=== PATIENT | male | born 1940 | race Caucasian/White ===

== ENCOUNTER → 2016-09-23 | Outpatient (CLI) | payer OTHER ==
[~2016-09-23] MED LIST: CYAN500T PO; IBUP-103 PO; MAGN1CAP4 PO; MISCTAB30 PO; PRED20TA PO
[2016-09-23 14:28] VITALS: BP 137/80; PULSE 72; TEMP 36.5; O2SAT 98
--- NOTE | 2016-09-23 16:12 | Radiation Oncology Follow-Up ---
Radiation Oncology Follow-Up Date of Visit Sep 23, 2016. (Gisela Bernal PA-C) Reason For Visit One-month follow-up (Gisela Bernal PA-C) Radiation Completion Date 09/03/16 (Gisela Bernal PA-C) Diagnosis (1) Malignant melanoma Status: Acute Onset Date: 08/06/2014 Stage: IV Permanent Comment: Malignant melanoma excised from the right neck 08/06/2014 Status post wide local excision 09/11/2014 Stage [id number] Development of right neck mass and finding of lung metastasis FNA of neck mass 01/06/2016 revealing malignant melanoma Initiation of systemic chemotherapy, Opdivo, now held due to edema Status post completion of radiation therapy 09/03/2016. He received 5000 cGy Last Edited By: Gisela Bernal on Sep 14, 2016 16:36 (Gisela Bernal PA-C) History of Present Illness Mr. Pal is a 76-year-old gentleman initially diagnosed with melanoma in August 2014 demonstrated with excision and observation. The patient more recently presented with progression of disease involving the lungs and right neck. Until recently, the patient refused any systemic therapy underneath the supervision of Dr. Sebastien Varghese. More recently, he did agree to initiate therapy and did receive Opdivo underneath the supervision of Dr. Sebastien Varghese. He has stopped the Opdivo due to significant edema in the upper extremities. Clinically, the patient has developed a enlarging right neck mass which has grown rapidly and we have been asked to evaluate him for consideration of palliative external beam radiation therapy; the patient was seen by Dr. Wood who advised against a surgical resection and recommended palliative radiation therapy as well. Overall, the patient is doing relatively okay. He has noticed an enlarging neck mass in the right neck which does cause any pain or discomfort. He completed radiation therapy 09/03/2016. He received 5000 cGy. (Gisela Brenal PA-C) Interim History Over the past month he has had improvement in the skin irritation that occurred at the end of treatment. He has some continued dryness for which she is using Aquaphor. There are no areas that are open or draining. He does feel that the mass did have a response but now has a new raised area at the very top. He denies any pain of his ear. He had no sore throat. There is alopecia of his mabry. He has had a recheck PET/CT that was performed on 09/16/2016. Unfortunately this has shown development of multiple metabolically active metastatic lesions in the liver. Interval increase in size and metabolic activity of pulmonary nodules/masses, and/or anterior mediastinal/prevascular lymphadenopathy. Demonstration of metabolically active right cervical mass just posterior to the parotid gland. Collectively, findings are consistent with progression of disease. He has seen Dr. Varghese in follow-up and she is recommending treatment with Keytruda. He is very concerned about potential side effects. He had been given one treatment Opdivo and had a severe reaction with edema. He has been on steroid therapy since. This is being adjusted by his primary care physician. He is currently down to one and half tablets per day. (Gisela Bernal PA-C) Allergies Coded Allergies: No Known Allergies (Unverified , 07/27/16) Home Medications Scheduled Cyanocobalamin (Vitamin B-12), 500 MCG PO DAILY Misc Natural Products (Osteo Bi-Flex Joint Shiel), 1 TAB PO DAILY Prednisone (Prednisone), 1 TAB PO BID Review of Systems Gastrointestinal: Symptoms: WNL Oral: Symptoms: No Problems Respiratory: Symptoms: WNL Urinary: Symptoms: WNL Skin: Symptoms: Dry Desquamation, No Problems Other Skin Symptoms: Dry / Patchy / Red at treatment site (Gisela Bernal PA-C) Physical Exam Vital Signs Date Time Temp Pulse Resp B/P (MAP) Pulse Ox O2 Delivery O2 Flow Rate FiO2 09/23/16 14:28 36.5 72 16 137/80 98 Fatigue: None Eyes: normal inspection, EOMI ENT: hearing grossly normal, + pertinent finding (there is a mass of the right neck which now measures approximately 3 cm in diameter. It is much softer compared to prior to treatment. It is also mobile. There is a new nodule on top of the mass. This is approximately 1 cm.) Neck: supple, thyroid normal, + pertinent finding (there is dry desquamation. There is no wet desquamation and there are no signs of infection.) Respiratory/Chest: lungs clear, no respiratory distress, no accessory muscle use Cardiovascular: regular rate, rhythm, no gallop, no murmur Neurologic/Psychiatric: no motor/sensory deficits, alert, normal mood/affect Skin: warm/dry (Gisela Bernal PA-C) Assessment & Plan Plan: He was seen and examined by Dr. Trujillo. He has an appointment to see Dr. Varghese on Wednesday to discuss treatment. I reviewed with him that the neck mass can be followed throughout treatment to determine if he is having a response to therapy. He'll continue to discuss the dose of steroids with his primary care physician. He is going to see Dr. Mendosa for an evaluation by rheumatology on 10/01/2016. We asked him to return to our office as needed or recommended by Dr. Varghese. (Gisela Bernal PA-C) I agree with note created by Gisela Bernal PA-C. I reviewed the patient's chart and information with her. I have examined and evaluated the patient. I reviewed relevant clinical information and answered the patient's and/or family' s questions. (Veeral. Trujillo MD) Total Time In Follow-Up We spent 25 minutes speaking to the patient and performing examination. I spent 15 minutes reviewing information in completing this note. (Gisela Bernal PA-C) I spent 15 minutes examining and counseling the patient. (Veeral. Trujillo MD) Copy To Sebastien Varghese MD; Josse Lynch D.O.; José Lorenzo M.D.; Robert Poole M.D. Problem Qualifiers (1) Malignant melanoma: Melanoma location: neck Qualified Codes: C43.4 - Malignant melanoma of scalp and neck
== END | disposition home or self-care (01) ==
LOC: C.ONC 14:22
PROVIDERS: ATTEND Physician Assistant Medical
DX: Z08 Encounter for follow-up examination after completed treatment for malignant neoplasm (principal); Z92.3 Personal history of irradiation; Z85.820 Personal history of malignant melanoma of skin

== ENCOUNTER 2017-01-11 19:15 | Emergency (ER) | payer OTHER ==
[~2017-01-11 19:15] MED LIST changes: -IBUP-103 PO; -MAGN1CAP4 PO
[2017-01-11] MEDS ORDERED: SODIUM CHLORIDE 0.9% 1000ML 1,000 ML IV STA (19:31)
[2017-01-11 19:40] VITALS: O2SAT 97
[2017-01-11 19:59] LABS: BASO % 0.1 %; BASO ABS # 0.01 K/uL (0-0.2); COMPLETE YES; EOS % 0.1 %; HEMATOCRIT 39.4 % (42-52); IG% 0.2 %; LYMPH % 10.7 %; LYMPH ABS # 1.19 K/uL (1.2-3.4); MEAN CELL VOLUME 93.8 fL (80-100); MEAN CORPUSCULAR HEMOGLOBIN 31.7 pg (25-34); MEAN CORPUSCULAR HGB CONC 33.8 g/dl (32-36); MEAN PLATELET VOLUME 9.5 fL (7.4-10.4); MONO % 5.8 %; NEUT % 83.1 %; PLATELET COUNT 230 K/uL (130-400); WHITE BLOOD COUNT 11.14 K/uL (4.8-10.8)
--- NOTE | 2017-01-11 20:07 | EMERGENCY ROOM VISIT NOTE ---
History Report prepared by Leonie: Layo Aguilar Under the Supervision of: Dr. Joe Vaughan M.D. First contact with patient: 19:24 Chief Complaint: STROKE SYMPTOMS Stated Complaint: STROKE History of Present Illness The patient is a 77 year old male who presents to the Emergency Room with complaints of worsening weakness that started January 01. The patient is accompanied by his who states he has been off balance and has been worsening. He reports that he has been drooling frequently and experiencing dysphasia. The patient states he has not had an appetite and has not been eating lately. His reports that he had some cereal and half of sandwich today. She states that his hands and legs have been "drooping". The patient states that he has a history of melanoma that was diagnosed 2 years ago. He reports that he had surgery on his right neck with Dr. Islas of [facility]. His states that he has had radiation and one unit of chemotherapy, but stopped chemotherapy due to how ill he became. The patient's reports that she is unsure if he is experiencing this because of fluid build up in his lungs. The patient reports that his PCP is Dr. Poole. He admits that he has a history of heartburn. The patient denies any blood thinners. Source of History: patient, spouse/significant other Onset: January 01 Position: other (global) Quality: other ("off balance") Timing: worsening Note: Associated Symptoms include: dysphasia and drooling Review of Systems All systems have been listed, reviewed, and are negative other than those previously mentioned. Please see Additional Medical History Sheet. Past Medical & Surgical Medical Problems: (1) Melanoma (2) Psoriasis Family History Cancer Lung disease Social History Smoking Status: Former Smoker Alcohol Use: occasionally Drug Use: none Marital Status: Housing Status: lives with significant other Occupation Status: retired Current/Historical Medications Scheduled Cyanocobalamin (Vitamin B-12), 500 MCG PO DAILY Magnesium Oxide (Magnesium), 500 MG PO DAILY Misc Natural Products (Osteo Bi-Flex Joint Shiel), 1 TAB PO DAILY Prednisone (Prednisone), 20 MG PO QAM Allergies Coded Allergies: No Known Allergies (Unverified , 01/11/17) Physical Exam Vital Signs Date Time Temp Pulse Resp B/P (MAP) Pulse Ox O2 Delivery O2 Flow Rate FiO2 01/11/17 22:30 78 16 139/98 98 Room Air 01/11/17 21:30 72 16 139/87 97 Room Air 01/11/17 20:10 80 18 146/88 97 Room Air 01/11/17 19:43 82 01/11/17 19:40 97 Room Air 01/11/17 19:25 89 18 144/85 94 Room Air Physical Exam GENERAL: Patient awake, alert, oriented x 3. Patient follows commands. Patient does not appear toxic. Patient is adequately hydrated and well- nourished. SKIN: No erythema, pallor, cyanosis or rash HEENT: Normal head, pupils equal, reactive to light and accommodation. Ears normal. Oral cavity and posterior pharynx appear normal. No obvious masses or deformities. Can move tongue to each side. Garbled speech. Neck: Without adenopathy, no neck vein distention. Nodule with scar and scarring from radiation on right side of neck right below ear. LUNGS: Clear to auscultation. No wheezes, no rales, no rhonchi. HEART: No murmurs. No gallops. No rubs ABDOMEN: No masses, no rebound, no hepatomegaly or splenomegaly. EXTREMITIES: No signs of trauma. No pedal or pretibial edema. No calf or thigh tenderness. NEUROLOGIC: Cranial nerves II-XII within normal limits. No gross motor sensory function deficits. Medical Decision & Procedures ER Provider Diagnostic Interpretation: X ray results are stated below per my interpretation and the radiologist's interpretation. CHEST 2 VIEWS ROUTINE HISTORY: melanoma in neck with mets COMPARISON: Outside hospital PET/CT 09/16/2016. FINDINGS: The heart is normal in size. No pleural effusions. No pneumothorax. Multiple bilateral pulmonary nodules consistent with metastatic disease. Dominant nodule within the right upper lobe measures 4.6 cm. These have increased in size compared to prior CT examination. No new focal lung consolidations to suggest pneumonia. No evidence for pulmonary edema. IMPRESSION: Increase in size in the multiple bilateral pulmonary nodules consistent with metastatic disease. Electronically signed by: Jc Cruz M.D. 01/11/2017 10:33 PM Dictated Date/Time: 01/11/2017 10:31 PM Laboratory Results 01/11/17 19:50 Red Blood Count 4.20, Mean Corpuscular Volume 93.8, Mean Corpuscular Hemoglobin 31.7, Mean Corpuscular Hemoglobin Concent 33.8, Mean Platelet Volume 9.5, Neutrophils (%) (Auto) 83.1, Lymphocytes (%) (Auto) 10.7, Monocytes (%) (Auto) 5.8, Eosinophils (%) (Auto) 0.1, Basophils (%) (Auto) 0.1, Neutrophils # (Auto) 9.26, Lymphocytes # (Auto) 1.19, Monocytes # (Auto) 0.65, Eosinophils # (Auto) 0.01, Basophils # (Auto) 0.01 01/11/17 19:50 Test 01/11/17 19:50 01/11/17 20:15 White Blood Count 11.14 K/uL (4.8-10.8) Red Blood Count 4.20 M/uL (4.7-6.1) Hemoglobin 13.3 g/dL (14.0-18.0) Hematocrit 39.4 % (42-52) Mean Corpuscular Volume 93.8 fL (80-100) Mean Corpuscular Hemoglobin 31.7 pg (25-34) Mean Corpuscular Hemoglobin Concent 33.8 g/dl (32-36) Platelet Count 230 K/uL (130-400) Mean Platelet Volume 9.5 fL (7.4-10.4) Neutrophils (%) (Auto) 83.1 % Lymphocytes (%) (Auto) 10.7 % Monocytes (%) (Auto) 5.8 % Eosinophils (%) (Auto) 0.1 % Basophils (%) (Auto) 0.1 % Neutrophils # (Auto) 9.26 K/uL (1.4-6.5) Lymphocytes # (Auto) 1.19 K/uL (1.2-3.4) Monocytes # (Auto) 0.65 K/uL (0.11-0.59) Eosinophils # (Auto) 0.01 K/uL (0-0.5) Basophils # (Auto) 0.01 K/uL (0-0.2) RDW Standard Deviation 45.3 fL (36.4-46.3) RDW Coefficient of Variation 13.2 % (11.5-14.5) Immature Granulocyte % (Auto) 0.2 % Immature Granulocyte # (Auto) 0.02 K/uL (0.00-0.02) Anion Gap 7.0 mmol/L (3-11) Estimated GFR () 85.0 Estimated GFR (Non- 73.3 BUN/Creatinine Ratio 16.6 (10-20) Calcium Level 9.7 mg/dl (8.5-10.1) Total Bilirubin 0.4 mg/dl (0.2-1) Aspartate Amino Transf (AST/SGOT) 15 U/L (15-37) Alanine Aminotransferase (ALT/SGPT) 20 U/L (12-78) Alkaline Phosphatase 83 U/L (45-117) Troponin I < 0.015 ng/ml (0-0.045) Total Protein 7.7 gm/dl (6.4-8.2) Albumin 3.7 gm/dl (3.4-5.0) Globulin 4.0 gm/dl (2.5-4.0) Albumin/Globulin Ratio 0.9 (0.9-2) Urine Color YELLOW Urine Appearance CLEAR (CLEAR) Urine pH 7.5 (4.5-7.5) Urine Specific Pisek 1.018 (1.000-1.030) Urine Protein NEG (NEG) Urine Glucose (UA) NEG (NEG) Urine Ketones NEG (NEG) Urine Occult Blood NEG (NEG) Urine Nitrite NEG (NEG) Urine Bilirubin NEG (NEG) Urine Urobilinogen NEG (NEG) Urine Leukocyte Esterase NEG (NEG) Laboratory results as stated above per my review. Medications Administered Medications (Trade) Dose Ordered Sig/Fernando Route Start Time Stop Time Status Last Admin Dose Admin Sodium Chloride 1,000 ml @ 300 mls/hr Q3H20M STAT IV 01/11/17 19:31 01/11/17 22:50 DC 01/11/17 20:10 300 MLS/HR Prednisone (PredniSONE TAB) 60 mg NOW STAT PO 01/11/17 22:02 01/11/17 22:04 DC 01/11/17 22:31 60 MG ECG Indication: weakness Rate (beats per minute): 78 Rhythm: normal sinus Findings: RBBB, other (LVH) Comparison ECG Date: no prior available ED Course 1925: Past medical records reviewed. The patient was evaluated in room A11B. A complete history and physical examination was performed. 1930: Ordered Sodium Chloride 1000 ml @ 300 mls/hr IV. 2201: Ordered Prednisone 60 mg PO. 2311: Upon reevaluation, the patient appeared to have improvement of his symptoms. I discussed today's findings with him. The patient verbalized agreement of the treatment plan. He was discharged home. Medical Decision Nurses notes reviewed. Medical history sheet reviewed. Differential diagnosis includes but is not limited to: melanoma with metastasis, CVA, TIA. Multiple labs, EKG and imaging were obtained. Please see above. The patient does not have symptoms to suggest a CVA or TIA. I believe his dysarthria is related to his tumor and subsequent radiation. On exam he does not have any airway compromise. Pulse oximetry is high. White count is not elevated. Patient was started on a higher dose of prednisone today and will double his prednisone dose daily for the next 5 days. I am hopeful that he can follow-up with oncology this week. Case management was asked to help get patient in. Medication Reconcilliation Current Medication List: was personally reviewed by me Blood Pressure Screening Patient's blood pressure: Elevated blood pressure Blood pressure disposition: Referred to PCP Impression Primary Impression: Malignant melanoma Additional Impression: Dysarthria Scribe Attestation The scribe's documentation has been prepared under my direction and personally reviewed by me in its entirety. I confirm that the note above accurately reflects all work, treatment, procedures, and medical decision making performed by me. Departure Information Dispostion Home / Self-Care Referrals Robert Poole M.D. (PCP) Patient Instructions My [facility] [employer] Additional Instructions Double your normal dose of prednisone for the next 5 days. Continue all of your other medications as prescribed. Follow-up with your oncologist this week. Problem Qualifiers
[2017-01-11 20:23] LABS: ALT/SGPT 20 U/L (12-78); BLOOD UREA NITROGEN 17 mg/dl (7-18); BUN/CREATININE RATIO 16.6 (10-20); CALCIUM 9.7 mg/dl (8.5-10.1); CARBON DIOXIDE 25 mmol/L (21-32); CHLORIDE 111 mmol/L (98-107); GLUCOSE 100 mg/dl (70-99); POTASSIUM 4.2 mmol/L (3.5-5.1); SODIUM 143 mmol/L (136-145)
[2017-01-11] MEDS ORDERED: MAGN1CAP4 PO (20:24)
[2017-01-11] MEDS ORDERED: PRED20TA PO (20:24)
[2017-01-11 20:28] LABS: ALB/GLOB RATIO 0.9 (0.9-2); ALKALINE PHOSPHATASE 83 U/L (45-117); AST/SGOT 15 U/L (15-37)
[2017-01-11 20:32] LABS: URINE APPEARANCE CLEAR (CLEAR); URINE BILIRUBIN NEG (NEG); URINE COLOR YELLOW; URINE NITRITE NEG (NEG); URINE PH 7.5 (4.5-7.5); URINE SPECIFIC GRAVITY 1.018 (1.000-1.030); UROBILINOGEN NEG (NEG); ZZUR CULT IF INDIC CLEAN CATCH NO
[2017-01-11 20:35] LABS: MANUAL MICROSCOPIC REQUIRED? NO; REVIEW REQ? NO
--- NOTE | 2017-01-11 22:34 | DIAGNOSTIC IMAGING REPORT ---
CHEST 2 VIEWS ROUTINE HISTORY: melanoma in neck with mets COMPARISON: Outside hospital PET/CT 09/16/2016. FINDINGS: The heart is normal in size. No pleural effusions. No pneumothorax. Multiple bilateral pulmonary nodules consistent with metastatic disease. Dominant nodule within the right upper lobe measures 4.6 cm. These have increased in size compared to prior CT examination. No new focal lung consolidations to suggest pneumonia. No evidence for pulmonary edema. IMPRESSION: Increase in size in the multiple bilateral pulmonary nodules consistent with metastatic disease. Electronically signed by: Jc Cruz M.D. 01/11/2017 10:33 PM Dictated Date/Time: 01/11/2017 10:31 PM
[2017-01-11 23:52] VITALS: BP 142/99; PULSE 77; O2SAT 98
--- NOTE | 2017-01-12 14:13 | Pharmacy Progress Note ---
ED Pharmacist Progress Note Date of Service: Jan 12, 2017. Patient's called regarding prednisone prescription from ER visit 01/11. After confirming with the patient himself that I was able to disclose this information to his , I informed her that it did not appear that a prescription was actually entered. I did however confirm the discharge instruction written by Dr. Vaughan to double the patients daily prednisone dose for the next 5 days until follow up appointment . The patient said that they had enough prednisone pills to be able to accomplish this and said they did not receive any discharge paperwork. I then coordinated with medical records on her behalf to have the discharge instruction emailed to the patient and his at the address provided to me of [email or web address].
== END 2017-01-11 23:31 | disposition home or self-care (01) ==
LOC: C.EDB 19:16 → C.EDA 23:31
DX: C43.9 Malignant melanoma of skin, unspecified (principal); R47.1 Dysarthria and anarthria; R47.02 Dysphasia; Z87.891 Personal history of nicotine dependence; Z92.3 Personal history of irradiation

== ENCOUNTER 2017-01-14 12:36 | Emergency (ER) | payer OTHER ==
[~2017-01-14] VITALS: Ht 167.6 cm; Wt 83.6 kg
[~2017-01-14 12:36] MED LIST changes: +MAGN1CAP4 PO
[2017-01-14] MEDS ORDERED: SODIUM CHLORIDE 0.9% 1000ML 1,000 ML IV STA (12:47)
[2017-01-14 13:21] LABS: COMPLETE YES; EOS % 0.2 %; HEMATOCRIT 38.9 % (42-52); IG% 0.2 %; LYMPH % 6.5 %; LYMPH ABS # 0.71 K/uL (1.2-3.4); MEAN CELL VOLUME 93.7 fL (80-100); MEAN CORPUSCULAR HGB CONC 34.2 g/dl (32-36); MEAN PLATELET VOLUME 9.7 fL (7.4-10.4); MONO % 3.5 %; NEUT % 89.6 %; PLATELET COUNT 225 K/uL (130-400); RED BLOOD COUNT 4.15 M/uL (4.7-6.1); WHITE BLOOD COUNT 10.88 K/uL (4.8-10.8)
[2017-01-14 13:29] LABS: PROTHROMBIN TIME (PATIENT) 10.4 SECONDS (9.0-12.0)
--- NOTE | 2017-01-14 13:31 | DIAGNOSTIC IMAGING REPORT ---
CT HEAD WITHOUT CONTRAST (CT) CLINICAL HISTORY: EVALUATE WEAKNESS SLURRED SPEECH COMPARISON STUDY: Outside MRI the brain dated 06/18/2016 TECHNIQUE: Axial CT of the brain is performed from the vertex to the skull base. IV contrast was not administered for this examination. A dose lowering technique was utilized adhering to the principles of ALARA. CT DOSE: 614.27 mGy.cm FINDINGS: There is a 3.5 cm hemorrhagic lesion with thin the right posterior frontal lobe with surrounding vasogenic edema. There is a 12 mm mildly hyperdense mass within the left frontal lobe. This 12 mm mildly hyperdense mass in the left frontal lobe. There is 8 mm mildly hyperdense mass in the left parietal lobe. This 21 mm hyperdense mass within the right frontoparietal vertex with surrounding vasogenic edema. There is 11 mm hyperdense lesion within the left frontal lobe. There is a 16 mm lesion within the right medial temporal lobe. There is an area of edema within the left occipital lobe. There is an 8 mm hyperdense lesion within the left parietal vertex. There is a 1 cm left posterior parietal vertex scalp lesion. There is no evidence of pathologic ventricular dilatation. There is mild mass effect on the right lateral ventricle. There is no evidence of acute sinusitis IMPRESSION: 1. Multiple bilateral parenchymal masses, viewed as highly suspicious for metastatic disease 2. 35mm acute hemorrhage within the right posterior frontal lobe with surrounding vasogenic edema. This likely represents hemorrhage into a mass 3. Although nonspecific, the hyperdense nature of the lesions, raises the possibility of metastatic melanoma. 4. 10 mm left posterior parietal scalp lesion Electronically signed by: Frantz Oropeza M.D. 01/14/2017 1:30 PM Dictated Date/Time: 01/14/2017 1:23 PM
--- NOTE | 2017-01-14 13:35 | DIAGNOSTIC IMAGING REPORT ---
SINGLE VIEW CHEST CLINICAL HISTORY: Generalized weakness. FINDINGS: An AP, portable, upright chest radiograph is compared to study dated 01/11/2017 and correlated with PET/CT dated 09/16/2016. The examination is degraded by portable technique and patient rotation. The cardiomediastinal silhouette is unremarkable. Large pulmonary nodules are again seen and consistent with multifocal pulmonary metastatic disease. This is similar to previous. No airspace consolidation is identified typical for pneumonia and there is no large pleural effusion. Atelectasis is seen at the left lung base. No pneumothorax is seen. The skeletal structures are osteopenic. The bony thorax is grossly intact. IMPRESSION: 1. There is no acute cardiopulmonary abnormality. 2. Multifocal pulmonary metastatic disease is similar to previous. Electronically signed by: Omar Nassar M.D. 01/14/2017 1:34 PM Dictated Date/Time: 01/14/2017 1:32 PM
[2017-01-14 13:49] LABS: BLOOD UREA NITROGEN 20 mg/dl (7-18); CREATININE 0.97 mg/dl (0.60-1.40); GLUCOSE 98 mg/dl (70-99)
[2017-01-14 13:50] LABS: ALT/SGPT 24 U/L (12-78); AST/SGOT 29 U/L (15-37); BUN/CREATININE RATIO 20.9 (10-20); CARBON DIOXIDE 25 mmol/L (21-32); CHLORIDE 109 mmol/L (98-107); MAGNESIUM 2.3 mg/dl (1.8-2.4); SODIUM 143 mmol/L (136-145)
[2017-01-14 13:58] LABS: ALKALINE PHOSPHATASE 80 U/L (45-117)
[2017-01-14] MEDS ORDERED: DEXAMETHASONE SOD INJ 10 MG/ML VIAL IV ONE (14:00)
[2017-01-14 14:05] VITALS: O2SAT 92
[2017-01-14 14:14] LABS: URINE APPEARANCE TURBID (CLEAR); URINE BILIRUBIN NEG (NEG); URINE COLOR YELLOW; URINE EPITHELIAL CELL AUTO 20-30 /lpf (0-5); URINE NITRITE NEG (NEG); URINE SPECIFIC GRAVITY 1.025 (1.000-1.030); UROBILINOGEN NEG (NEG)
[2017-01-14 14:15] LABS: MANUAL MICROSCOPIC REQUIRED? NO; REVIEW REQ? NO
[2017-01-14 14:22] VITALS: Ht 167.6 cm; Wt 83.6 kg
[2017-01-14 16:25] VITALS: BP 136/87; PULSE 65; TEMP 36.7; O2SAT 98
--- NOTE | 2017-01-14 17:23 | EMERGENCY ROOM VISIT NOTE ---
History Report prepared by Leonie: Leonel Uribe Under the Supervision of: Dr. Erasto Flores M.D. First contact with patient: 12:47 Chief Complaint: WEAKNESS Stated Complaint: SENT BY DR FOR BRAIN CT, WEAKNESS, SLURRED SPEECH History of Present Illness The patient is a 77 year old male with a history of metastatic melanoma who presents to the Emergency Room with complaints of worsening weakness that started a few days ago. He was seen by his oncologist (Dr. Varghese) prior to arrival today, and was sent here due to the patient's weakness and headache. Per the patient's , the patient is not himself, and he has had abnormal speech and swallowing difficulties that started 3 days ago. The patient has had some sinus drainage as well. He notes that his right leg is weaker than his left , which is new. He says that his current headache is not too bad. The patient has been going through radiation for the cancer. Pt denies LOC, fevers, chills, diaphoresis, visual changes, neck pain, chest pain, breathing difficulties, nausea, vomiting, abdominal pain, back pain, melena, hematochezia, urinary symptoms, numbness, lymphadenopathy, rash, or other complaints. Source of History: patient, spouse/significant other Onset: A few days ago Position: other (global - weakness) Timing: worsening Associated Symptoms: + headache Note: Associated symptoms: Speech abnormal, difficulty swallowing. Right leg weaker than left leg. Review of Systems See HPI for pertinent positives and negatives. A total of ten systems were reviewed and were otherwise negative. Past Medical & Surgical Medical Problems: (1) Melanoma (2) Psoriasis Family History Cancer Lung disease Social History Smoking Status: Former Smoker Alcohol Use: occasionally Drug Use: none Marital Status: Housing Status: lives with significant other Occupation Status: retired Current/Historical Medications Scheduled Cyanocobalamin (Vitamin B-12), 500 MCG PO DAILY Magnesium Oxide (Magnesium), 500 MG PO DAILY Misc Natural Products (Osteo Bi-Flex Joint Shiel), 1 TAB PO DAILY Prednisone (Prednisone), 20 MG PO QAM Allergies Coded Allergies: No Known Allergies (Unverified , 01/14/17) Physical Exam Vital Signs Date Time Temp Pulse Resp B/P (MAP) Pulse Ox O2 Delivery O2 Flow Rate FiO2 01/14/17 16:25 36.7 65 16 136/87 98 01/14/17 15:41 36.7 65 16 136/87 98 Room Air 01/14/17 14:59 70 16 139/97 99 Room Air 01/14/17 14:05 92 Room Air 01/14/17 13:00 69 01/14/17 12:42 36.7 69 18 105/71 97 Room Air Physical Exam GENERAL: Awake, alert, tired-appearing, in no distress HENT: Normocephalic, atraumatic. Oropharynx unremarkable. EYES: Pale conjunctiva. Sclera non-icteric. NECK: Mass on right neck. Supple. No nuchal rigidity. FROM. No JVD. RESPIRATORY: Clear to auscultation. CARDIAC: Regular rate, normal rhythm. Extremities warm and well perfused. Pulses equal. ABDOMEN: Soft, non-distended. No tenderness to palpation. No rebound or guarding. No masses. RECTAL: Deferred. MUSCULOSKELETAL: Chest examination reveals no tenderness. The back is symmetrical on inspection without obvious abnormality. There is no CVA tenderness to palpation. No joint edema. LOWER EXTREMITIES: Calves are equal size bilaterally and non-tender. No edema. No discoloration. NEURO: Normal sensorium. Subtle drift in left arm. Speech was dysarthric. SKIN: No rash or jaundice noted. Medical Decision & Procedures ER Provider Diagnostic Interpretation: Radiology results as stated below per my review and radiologist interpretation: CT HEAD WITHOUT CONTRAST (CT) CLINICAL HISTORY: EVALUATE WEAKNESS SLURRED SPEECH COMPARISON STUDY: Outside MRI the brain dated 06/18/2016 TECHNIQUE: Axial CT of the brain is performed from the vertex to the skull base. IV contrast was not administered for this examination. A dose lowering technique was utilized adhering to the principles of ALARA. CT DOSE: 614.27 mGy.cm FINDINGS: There is a 3.5 cm hemorrhagic lesion with thin the right posterior frontal lobe with surrounding vasogenic edema. There is a 12 mm mildly hyperdense mass within the left frontal lobe. This 12 mm mildly hyperdense mass in the left frontal lobe. There is 8 mm mildly hyperdense mass in the left parietal lobe. This 21 mm hyperdense mass within the right frontoparietal vertex with surrounding vasogenic edema. There is 11 mm hyperdense lesion within the left frontal lobe. There is a 16 mm lesion within the right medial temporal lobe. There is an area of edema within the left occipital lobe. There is an 8 mm hyperdense lesion within the left parietal vertex. There is a 1 cm left posterior parietal vertex scalp lesion. There is no evidence of pathologic ventricular dilatation. There is mild mass effect on the right lateral ventricle. There is no evidence of acute sinusitis IMPRESSION: 1. Multiple bilateral parenchymal masses, viewed as highly suspicious for metastatic disease 2. 35mm acute hemorrhage within the right posterior frontal lobe with surrounding vasogenic edema. This likely represents hemorrhage into a mass 3. Although nonspecific, the hyperdense nature of the lesions, raises the possibility of metastatic melanoma. 4. 10 mm left posterior parietal scalp lesion Electronically signed by: Frantz Oropeza M.D. 01/14/2017 1:30 PM Dictated Date/Time: 01/14/2017 1:23 PM SINGLE VIEW CHEST CLINICAL HISTORY: Generalized weakness. FINDINGS: An AP, portable, upright chest radiograph is compared to study dated 01/11/2017 and correlated with PET/CT dated 09/16/2016. The examination is degraded by portable technique and patient rotation. The cardiomediastinal silhouette is unremarkable. Large pulmonary nodules are again seen and consistent with multifocal pulmonary metastatic disease. This is similar to previous. No airspace consolidation is identified typical for pneumonia and there is no large pleural effusion. Atelectasis is seen at the left lung base. No pneumothorax is seen. The skeletal structures are osteopenic. The bony thorax is grossly intact. IMPRESSION: 1. There is no acute cardiopulmonary abnormality. 2. Multifocal pulmonary metastatic disease is similar to previous. Electronically signed by: Omar Nassar M.D. 01/14/2017 1:34 PM Dictated Date/Time: 01/14/2017 1:32 PM Laboratory Results 01/14/17 13:00 Red Blood Count 4.15, Mean Corpuscular Volume 93.7, Mean Corpuscular Hemoglobin 32.0, Mean Corpuscular Hemoglobin Concent 34.2, Mean Platelet Volume 9.7, Neutrophils (%) (Auto) 89.6, Lymphocytes (%) (Auto) 6.5, Monocytes (%) (Auto) 3.5, Eosinophils (%) (Auto) 0.2, Basophils (%) (Auto) 0.0, Neutrophils # (Auto) 9.75, Lymphocytes # (Auto) 0.71, Monocytes # (Auto) 0.38, Eosinophils # (Auto) 0.02, Basophils # (Auto) 0.00 01/14/17 13:00 Test 01/14/17 13:00 01/14/17 14:00 White Blood Count 10.88 K/uL (4.8-10.8) Red Blood Count 4.15 M/uL (4.7-6.1) Hemoglobin 13.3 g/dL (14.0-18.0) Hematocrit 38.9 % (42-52) Mean Corpuscular Volume 93.7 fL (80-100) Mean Corpuscular Hemoglobin 32.0 pg (25-34) Mean Corpuscular Hemoglobin Concent 34.2 g/dl (32-36) Platelet Count 225 K/uL (130-400) Mean Platelet Volume 9.7 fL (7.4-10.4) Neutrophils (%) (Auto) 89.6 % Lymphocytes (%) (Auto) 6.5 % Monocytes (%) (Auto) 3.5 % Eosinophils (%) (Auto) 0.2 % Basophils (%) (Auto) 0.0 % Neutrophils # (Auto) 9.75 K/uL (1.4-6.5) Lymphocytes # (Auto) 0.71 K/uL (1.2-3.4) Monocytes # (Auto) 0.38 K/uL (0.11-0.59) Eosinophils # (Auto) 0.02 K/uL (0-0.5) Basophils # (Auto) 0.00 K/uL (0-0.2) RDW Standard Deviation 45.5 fL (36.4-46.3) RDW Coefficient of Variation 13.3 % (11.5-14.5) Immature Granulocyte % (Auto) 0.2 % Immature Granulocyte # (Auto) 0.02 K/uL (0.00-0.02) Prothrombin Time 10.4 SECONDS (9.0-12.0) Prothromb Time International Ratio 1.0 (0.9-1.1) Activated Partial Thromboplast Time 25.4 SECONDS (21.0-31.0) Partial Thromboplastin Ratio 1.0 Anion Gap 9.0 mmol/L (3-11) Est Creatinine Clear Calc Drug Dose 65.8 ml/min Estimated GFR () 88.1 Estimated GFR (Non- 76.1 BUN/Creatinine Ratio 20.9 (10-20) Calcium Level 9.0 mg/dl (8.5-10.1) Magnesium Level 2.3 mg/dl (1.8-2.4) Total Bilirubin 0.7 mg/dl (0.2-1) Direct Bilirubin 0.2 mg/dl (0-0.2) Aspartate Amino Transf (AST/SGOT) 29 U/L (15-37) Alanine Aminotransferase (ALT/SGPT) 24 U/L (12-78) Alkaline Phosphatase 80 U/L (45-117) Troponin I < 0.015 ng/ml (0-0.045) Total Protein 7.0 gm/dl (6.4-8.2) Albumin 3.5 gm/dl (3.4-5.0) Lipase 164 U/L (73-393) Thyroid Stimulating Hormone (TSH) 1.580 uIu/ml (0.300-4.500) Urine Color YELLOW Urine Appearance TURBID (CLEAR) Urine pH 6.0 (4.5-7.5) Urine Specific [place] 1.025 (1.000-1.030) Urine Protein NEG (NEG) Urine Glucose (UA) NEG (NEG) Urine Ketones NEG (NEG) Urine Occult Blood NEG (NEG) Urine Nitrite NEG (NEG) Urine Bilirubin NEG (NEG) Urine Urobilinogen NEG (NEG) Urine Leukocyte Esterase NEG (NEG) Urine WBC (Auto) 1-5 /hpf (0-5) Urine RBC (Auto) 0-4 /hpf (0-4) Urine Hyaline Casts (Auto) 5-10 /lpf (0-5) Urine Epithelial Cells (Auto) 20-30 /lpf (0-5) Urine Bacteria (Auto) NEG (NEG) Laboratory results reviewed by me Medications Administered Medications (Trade) Dose Ordered Sig/Fernando Route Start Time Stop Time Status Last Admin Dose Admin Sodium Chloride 1,000 ml @ 125 mls/hr Q8H STAT IV 01/14/17 12:47 01/14/17 16:54 DC 01/14/17 13:12 125 MLS/HR Dexamethasone Sodium Phosphate (Decadron Inj) 10 mg NOW ONCE IV 01/14/17 14:00 01/14/17 14:01 DC 01/14/17 14:15 10 MG ECG Indication: weakness Rate (beats per minute): 62 Rhythm: normal sinus Findings: RBBB, no acute ischemic change, no ectopy ED Course 1247: Ordered NSS 1000 ml @ 125 mls/hr IV. 1302: The patient was evaluated in room A12B. A complete history and physical exam was performed. 1349: I reevaluated and updated the patient. 1354: I discussed the patient with Dr. Abimael Valenzuela oncology - I updated her about the patient. 1400: Ordered Decadron Inj 10 mg IV. 1418: I reevaluated the patient and told him about his brain hemorrhage. The patient verbally expressed understanding and agreement of the treatment plan. The patient will be transferred to [facility]. 1435: I discussed the patient with Dr. Emily Valenzuela neurosurgery - he will get me connected to the intensive care unit. 1443: I discussed the patient with Dr. Dorothy Valenzuela manager copy - and Dr. Tom Valenzuela neurosurgery - they will accept the patient via transfer. Medical Decision Triage Nursing notes reviewed. The patient's presentation and history were concerning for headache, slurred speech and weakness. Etiologies such as complications of metastatic melanoma, metabolic, infection, hypo/hyperglycemia, electrolyte abnormalities, cardiac sources, intracerebral event, toxicologic, neurologic, as well as others were entertained. The patient was evaluated. Blood work was obtained. Imaging ordered. He is gently hydrated. Blood work was unremarkable except for a slight leukocytosis but the patient is on prednisone. His CT imaging was very concerning as he has multiple lesions in the brain and there is hemorrhagic conversion on the right. He was given IV Decadron due to the vasogenic edema. I discussed the findings with the patient and his . He would like to be evaluated by neurosurgery and this is not available here. I did consult with neurosurgery at [facility]. The patient was accepted but it did require discussion with the intensive care unit as well. I did discuss the case with the manager copy. The patient was accepted there as well. Medical command for transfer was done by me. The patient was informed and reassessed. He was stable. The copper plate printer was briefed. The patient was transferred to [place] for further management of this intracranial hemorrhage and metastatic melanoma. Medication Reconcilliation Current Medication List: was personally reviewed by me Blood Pressure Screening Patient's blood pressure: Normal blood pressure Consults Time Called: 1350 Consulting Physician: Dr. Abimael Valenzuela oncology Returned Call: 1358 I discussed the patient with Dr. Abimael Valenzuela oncology - I updated her about the patient. Additional Consults: Time Called: 1430 Consulted Physician: Dr. Emily Valenzuela neurosurgery Returned Call: 1435 Additional Comments: I discussed the patient with Dr. Emily edwards - he will get me connected to the intensive care unit. Time Called: 1440 Consulted Physician: Dr. Dorothy Valenzuela manager copy - and Dr. Tom Valenzuela neurosurgery Returned Call: 1443 Additional Comments: I discussed the patient with Dr. Dorothy Valenzuela manager copy - and Dr. Tom Valenzuela neurosurgery - they will accept the patient via transfer. Impression Primary Impression: Intracerebral hemorrhage Additional Impression: Metastatic melanoma Critical Care I have personally spent greater than 40 minutes of critical care time in the direct management of this patient. This includes bedside care, interpretation of diagnostic studies, and testing, discussion with consultants, patient, and family members, and other required patient management activities. This 40 minutes is in excess of all separately billable procedures. Scribe Attestation The scribe's documentation has been prepared under my direction and personally reviewed by me in its entirety. I confirm that the note above accurately reflects all work, treatment, procedures, and medical decision making performed by me. Departure Information Dispostion Transfer Acute Care Facility (to [facility]) Referrals Sebastien Varghese MD (PCP) Patient Instructions My [facility] Problem Qualifiers
== END 2017-01-14 16:22 | disposition short-term general hospital (02) ==
LOC: C.EDB 12:38 → C.EDA 16:22
DX: I61.9 Nontraumatic intracerebral hemorrhage, unspecified (principal); C43.9 Malignant melanoma of skin, unspecified; L40.9 Psoriasis, unspecified; Z80.9 Family history of malignant neoplasm, unspecified; Z87.891 Personal history of nicotine dependence; Z79.899 Other long term (current) drug therapy